=== PATIENT | female | born 1955 | race Caucasian/White ===

== ENCOUNTER 2017-04-13 07:06 | Day surgery (SDC) | payer BC ==
[~2017-04-13] VITALS: Ht 171.4 cm; Wt 78.6 kg
[~2017-04-13 07:06] MED LIST: AMLO-512 PO; FentaNYL CITRATE-PF 100 MCG/2 ML VIAL IVP ONE; METF500T4 PO; MIDAZOLAM HCL 2 MG/2 ML VIAL IVP ONE; SIMV-260 PO
[2017-04-13] MEDS ORDERED: CYCLOPENTOLATE HCL 2% 2 ML OPHTHALMIC SOLUTION ONE (07:21)
[2017-04-13] MEDS ORDERED: PHENYLEPHRINE HCL 2.5% 2 ML OPHTHALMIC SOLUTION ONE (07:21)
[2017-04-13] MEDS ORDERED: RINGERS SOLUTION,LACTATED 500 ML IV ONE ×2 (07:21→08:15)
[2017-04-13] MEDS ORDERED: MOXIFLOXACIN HCL 0.5% 3 ML OPHTHALMIC SOLUTION ONE (07:21)
[2017-04-13] MEDS ORDERED: DICLOFENAC SODIUM 0.1% 2.5 ML OPHTHALMIC SOLUTION ONE (07:21)
[2017-04-13] MEDS ORDERED: TETRACAINE HCL/PF 0.5% 4 ML OPHTHALMIC SOLUTION ONE (07:21)
[2017-04-13] MEDS ORDERED: ACETAMINOPHEN/CODEINE 300-30 MG TABLET PO PRN (07:45)
[2017-04-13] MEDS ORDERED: TETRACAINE HCL/PF 0.5% 4 ML OPHTHALMIC SOLUTION OD ONE (07:45)
[2017-04-13] MEDS: CYCLOPENTOLATE HCL 2% 2 ML OPHTHALMIC SOLUTION OD SCH ×3 (08:04→08:14)
[2017-04-13] MEDS: DICLOFENAC SODIUM 0.1% 2.5 ML OPHTHALMIC SOLUTION OD SCH ×3 (08:04→08:25)
[2017-04-13] MEDS: MOXIFLOXACIN HCL 0.5% 3 ML OPHTHALMIC SOLUTION OD SCH ×3 (08:04→08:24)
[2017-04-13] MEDS: PHENYLEPHRINE HCL 2.5% 2 ML OPHTHALMIC SOLUTION OD SCH ×3 (08:04→08:14)
[2017-04-13 08:07] LABS: GLUCOSE COMMENT 1 Doctor Notified; GLUCOSE,POINT OF CARE 98 MG/DL (70-110)
[2017-04-13] MEDS ORDERED: TETRACAINE HCL VISCOUS 0.5% 5 ML OPHTHALMIC SOLUTION OD ONE (09:00)
[2017-04-13] MEDS ORDERED: AcetaZOLAMIDE 250 MG TABLET PO ONE (10:45)
[2017-04-13] MEDS ORDERED: AcetaZOLAMIDE 250 MG TABLET ONE (11:32)
== END 2017-04-13 12:20 | disposition home or self-care (01) ==
LOC: SURGERY 07:06
PROVIDERS: ATTEND Ophthalmology
DX: E11.36 Type 2 diabetes mellitus with diabetic cataract (principal); I10 Essential (primary) hypertension; F41.9 Anxiety disorder, unspecified
CPT/HCPCS: 66984; 82962; 93005; C1780; J2250; J3010; J7120